=== PATIENT | female | born 1965 | race Caucasian/White ===

== ENCOUNTER → 2019-03-21 | Day surgery (SDC) | payer BC ==
[~2019-03-21] MED LIST: ACETAMINOPHEN/CODEINE 300MG - 30MG TAB ONE; BUPIVACAINE HCL 0.5% INJ 30 ML VIAL INJ ONE; CEFAZOLIN SOD 1 GM/NS 50ML 50 ML IV ONE; DEXAMETHASONE SOD PHOS INJ 4 MG/ML VIAL ONE; FENTANYL CITRATE/PF 100MCG/2 ML INJ ONE; HYDROXYZINE HCL25 MG PO; KETOROLAC TROMETHAMINE 30 MG/ML VIAL ONE; LIDOCAINE HCL 2% LOCAL INJ 5 ML SDV VIAL INJ ONE; MIDAZOLAM HCL 2 MG/2 ML VIAL ONE; ONDANSETRON HCL INJ 2MG/ML 2ML 2 MG/ML VIAL ONE; PROPOFOL IV EMULSION 10 MG/ML 20 ML VIAL ONE; SEVOFLURANE INHAL SOLN 250 ML PEN BTL ONE
[2019-03-21 08:40] VITALS: BP 108/72
--- NOTE | 2019-03-21 13:17 | Operative Report ---
DATE OF PROCEDURE: 03/21/2019 SURGEON: Antonina Barlow DPM PREOPERATIVE DIAGNOSES: 1. Right ganglion cyst. 2. Right exostosis. POSTOPERATIVE DIAGNOSIS: Right exostosis. SURGEON: Jourdan Dyson DPM ([place]). DIETETIC ASSISTANT: Antonina Barlow DPM. ANESTHESIA: General with a postoperative block consisting of 10 mL of 0.5% Marcaine plain mixed with 1 mL of dexamethasone phosphate. HEMOSTASIS: Pneumatic thigh tourniquet set at 350 mmHg for a total time of approximately 20 minutes. MATERIALS: 3-0 Vicryl and 4-0 nylon. ESTIMATED BLOOD LOSS: Less than 10 mL. PATHOLOGY: None. PROCEDURE NOTE: The patient was seen in the preoperative waiting room. The correct procedure and site were identified. The patient was brought to the operating room and placed on the operating table in the supine position. General anesthesia was initiated. At this time, a well-padded pneumatic tourniquet was placed about the patient's right thigh. The right foot, ankle, and leg were prepped and draped in the usual aseptic manner. The right foot, ankle, and leg was exsanguinated with an Esmarch bandage and the pneumatic thigh tourniquet was inflated to 350 mmHg for a total time of approximately 20 minutes. Attention was directed to the proximal lateral aspect of the patient's right foot, where a soft tissue prominence as well as a bony prominence was noted. A 5 cm linear incision was made directly over the soft tissue prominence. Upon incision, there was noted to be a very hypertrophic extensor digitorum longus muscle belly. The dissection was carried through subcutaneous tissue it from deeper underlying structures. All vital and neurovascular structures were identified and retracted medially and laterally. All bleeders were cauterized or ligated as deemed necessary. Next, the extensor digitorum muscle belly was reflected laterally to allow for good visualization of the exostosis, which appeared to be at the level of the cuboid cuneiform joint. Utilizing an osteotome and mallet, the exostosis was resected and passed off to the back table and smoothed with a rongeur and a rasp. The wound was then copiously irrigated with sterile saline. Capsular deep tissue was reapproximated with 3-0 Vicryl, subcutaneous tissue with 3-0 Vicryl, and the skin was closed using a running interlocking stitch with 4-0 nylon. The incision site was then dressed with Adaptic, 4x4s, Kerlix, Jeovanny wrap, and a postop shoe. The patient tolerated the procedure and anesthesia well. The patient was transferred to the postoperative recovery room with vital signs stable and vascular status intact. The patient was monitored there for a short period of time before being sent home with the following written and oral instructions: 1. Keep the dressing clean, dry, and intact. 2. The patient is to remain partial weightbearing and a postop shoe to avoid excessive ambulation until being seen in the office. 3. The patient was given the office number and instructed to contact us if any problems arise. Dictated by Antonina Barlow DPM [facility] [place] ([place])/MODL /[id number]
== END | disposition home or self-care (01) ==
LOC: OR 05:17
PROVIDERS: ATTEND Podiatrist Foot & Ankle Surgery
DX: M77.51 Other enthesopathy of right foot and ankle (principal); M67.471 Ganglion, right ankle and foot; E66.01 Morbid (severe) obesity due to excess calories; Z01.810 Encounter for preprocedural cardiovascular examination
CPT/HCPCS: 28104; 93005; J0690; J1100; J1885; J2001; J2250; J2405; J2704; J3010